=== PATIENT | male | born 1945 | race Caucasian/White ===

== ENCOUNTER 2020-03-12 13:11 | Outpatient (CLI) | payer MEDICARE ==
--- NOTE | 2020-03-12 15:19 | MRI ---
MRI LUMBAR SPINE NONCONTRAST: DATE: 03/12/2020 HISTORY: 74-year-old male with low back pain COMPARISON: 03/18/2018 FINDINGS: 5 lumbar-type vertebrae. Conus medullaris terminates at L1. T12-L1:Essentially normal. L1-2:Moderate disc space narrowing. Modic type I endplate marrow changes. Slight retrolisthesis of L1 on L2, plus diffuse broad-based disc bulge-osteophyte complex, indent the ventral aspect of thecal sac without causing significant central spinal canal stenosis. No high-grade neural foraminal stenosi s. No major interval change. L2-3:Mild to moderate disc space narrowing. Diffuse disc bulge-osteophyte complex, along with slight retrolisthesis of L2 on L3, indents ventral aspect of thecal sac. Despite this, no significant central spinal canal stenosis. No neural foraminal stenosis. No major interval change. L3-4:Mild disc space narrowing.Diffuse disc bulge-osteophyte complex, along with slight retrolisthesi s of L2 on L3, indents ventral aspect of thecal sac. Despite this, no significant central spinal canal stenosis. Mild to moderate right neural foraminal stenosis. This is the only interval change si nce prior MRI. No significant left neural foraminal stenosis. L4-5:Severe bilateral facet DJD. Moderate disc space narrowing. Diffuse disc bulge. Moderate ligament um flavum thickening. Moderate to severe central spinal canal stenosis. Severe thecal sac stenosis. Lateral recess stenosis bilaterally. Moderate bilateral neural foraminal stenosis. No major interval change. L5-S1:Exaggerated lordosis. Moderate to severe disc space narrowing. Ankylosis by bony bridges across the disc space between the endplates stabilizes this minimal grade 1 anterolisthesis of L5 on S1. Questionable left pars interarticularis defect. Severe left facet DJD. Moderate right facet DJD. Gene margret caliber of spinal canal and thecal sac. Right lateral recess stenosis by focal chronic right lateral disc-osteophyte complex, which continues laterally resulting in moderate right neural foramin al stenosis. No significant left neural foraminal stenosis. No significant interval change. Questionable old midline laminectomy defect. IMPRESSION: 1) lumbar spondylosis, with multilevel degenerative disc disease of varying degrees, and facet osteoa rthrosis of varying degrees. 2) the facet osteoarthrosis is worst at L4-5. 3) moderate to severe central spinal canal stenosis and severe thecal sac stenosis at L4-5, unchanged .
--- NOTE | 2020-03-15 14:59 | CCLSPC ---
PROCEDURE: Lower extremity arterial study using Doppler waveform analysis and segmental limb pressures. FINDINGS: Examination of the right leg reveals abnormal waveforms at the femoral, popliteal, and posterior tibial level with an ankle-arm index of 0.77. Toe-brachial index is depressed at 0.46. Left lower extremity demonstrates abnormal waveforms at all levels again with an ankle-arm index of 0.76, and a toe-brachial index could not be calculated. This study suggests severe aortoiliac disease. Job ID: [id number]
== END 2020-03-12 13:12 | disposition home or self-care (01) ==
LOC: MRI 13:11
PROVIDERS: ATTEND Family Medicine
DX: I73.9 Peripheral vascular disease, unspecified (principal); M54.5 Low back pain; M51.36 Other intervertebral disc degeneration, lumbar region; M47.816 Spondylosis without myelopathy or radiculopathy, lumbar region; M48.061 Spinal stenosis, lumbar region without neurogenic claudication
CPT/HCPCS: 72148; 93922

== ENCOUNTER 2021-03-04 09:29 | Outpatient (CLI) | payer MEDICARE ==
[2021-03-04] MEDS ORDERED: Iopamidol-370 76% 500 ML 1 ML ONE (13:32)
== END 2021-03-04 09:30 | disposition home or self-care (01) ==
LOC: BICCT 09:29
PROVIDERS: ATTEND Family Medicine
DX: I71.4 Abdominal aortic aneurysm, without rupture (principal); I70.8 Atherosclerosis of other arteries; I70.1 Atherosclerosis of renal artery; I70.0 Atherosclerosis of aorta; Z98.890 Other specified postprocedural states
CPT/HCPCS: 75635; 82565; Q9967

== ENCOUNTER 2021-03-04 10:28 | Outpatient (CLI) | payer MEDICARE | END 2021-03-04 10:29 | disposition home or self-care (01) | LOC: BICMAMMO 10:28 | PROVIDERS: ATTEND Family Medicine | DX: Z13.820 Encounter for screening for osteoporosis (principal); M85.852 Other specified disorders of bone density and structure, left thigh; M85.851 Other specified disorders of bone density and structure, right thigh | CPT/HCPCS: 77080 ==

== ENCOUNTER 2021-06-24 09:57 | Outpatient (CLI) | payer MEDICARE | END 2021-06-24 09:58 | disposition home or self-care (01) | LOC: BICCT 09:57 | PROVIDERS: ATTEND Internal Medicine Critical Care Medicine | DX: R91.1 Solitary pulmonary nodule (principal) | CPT/HCPCS: 71250 ==

== ENCOUNTER 2022-03-05 23:37 | Emergency (ER) | payer MEDICARE | END 2022-03-06 00:45 | disposition home or self-care (01) | LOC: ERS 23:37 | DX: M54.32 Sciatica, left side (principal); I10 Essential (primary) hypertension; Z86.73 Personal history of transient ischemic attack (TIA), and cerebral infarction without residual deficits | CPT/HCPCS: 99283 ==

== ENCOUNTER 2022-03-13 12:21 | Outpatient (CLI) | payer MEDICARE | END 2022-03-13 12:22 | disposition home or self-care (01) | LOC: BICRAD 12:21 | PROVIDERS: ATTEND Family Medicine | DX: M25.551 Pain in right hip (principal); M25.552 Pain in left hip; M16.11 Unilateral primary osteoarthritis, right hip; W19.XXXA Unspecified fall, initial encounter | CPT/HCPCS: 72170 ==

== ENCOUNTER 2022-03-30 14:25 | Outpatient (CLI) | payer MEDICARE | END 2022-03-30 14:26 | disposition home or self-care (01) | LOC: RAD 14:25 | PROVIDERS: ATTEND Internal Medicine Critical Care Medicine | DX: R06.00 Dyspnea, unspecified (principal); R91.8 Other nonspecific abnormal finding of lung field | CPT/HCPCS: 71046 ==

== ENCOUNTER 2022-09-09 13:22 | Outpatient (CLI) | payer MEDICARE | END 2022-09-09 13:23 | disposition home or self-care (01) | LOC: BICCT 13:22 | PROVIDERS: ATTEND Neurological Surgery | DX: M79.605 Pain in left leg (principal) | CPT/HCPCS: 74174; 82565 ==

== ENCOUNTER 2023-06-09 12:22 | Outpatient (CLI) | payer MEDICARE | END 2023-06-09 12:23 | disposition home or self-care (01) | LOC: RAD 12:22 | PROVIDERS: ATTEND Family Medicine | DX: J44.9 Chronic obstructive pulmonary disease, unspecified (principal) | CPT/HCPCS: 71046 ==

== ENCOUNTER 2024-03-17 09:08 | Outpatient (CLI) | payer MEDICARE | END 2024-03-17 09:09 | disposition home or self-care (01) | LOC: RAD 09:08 | PROVIDERS: ATTEND Physician Assistant Medical | DX: K59.00 Constipation, unspecified (principal); R10.9 Unspecified abdominal pain; K55.1 Chronic vascular disorders of intestine; R41.3 Other amnesia | CPT/HCPCS: 74018 ==